=== PATIENT | female | born 1980 | race Caucasian/White ===

== ENCOUNTER 2018-06-22 12:03 | Emergency (ER) | payer BC, OTHER ==
[~2018-06-22] VITALS: Ht 167.6 cm; Wt 76.3 kg
[2018-06-22] MEDS ORDERED: MULT-516 PO (12:36)
[2018-06-22] MEDS ORDERED: KETOROLAC 30 MG/1 ML ONE (12:54)
[2018-06-22] MEDS ORDERED: DIAZEPAM 5 MG TABLET ONE (12:55)
[2018-06-22] MEDS ORDERED: KETOROLAC 30 MG/1 ML IM ONE (13:00)
[2018-06-22] MEDS ORDERED: DIAZEPAM 5 MG TABLET PO ONE (13:00)
[2018-06-22] MEDS ORDERED: PLEASE ENTER ALLERGIES MC SCH (13:00)
[2018-06-22] MEDS ORDERED: ONDANSETRON 2MG/ML, 2ML ONE (14:45)
[2018-06-22] MEDS ORDERED: HYDROmorphone 2 MG/ML, 1ML ONE (14:46)
[2018-06-22] MEDS ORDERED: METHOCARBAMOL 1,000 MG in DEXTROSE 5% 100 ML IV ONE (15:00)
[2018-06-22] MEDS ORDERED: HYDROmorphone 1 MG/ML, 1ML IV ONE (15:00)
[2018-06-22] MEDS ORDERED: ONDANSETRON 2MG/ML, 2ML IVPush ONE (15:00)
[2018-06-22 15:33] VITALS: BP 116/75
== END 2018-06-22 16:31 | disposition home or self-care (01) ==
LOC: ED 14:07
DX: M46.1 Sacroiliitis, not elsewhere classified (principal)
CPT/HCPCS: 72110; 96365; 96372; 96375; 99284; J1170; J1885; J2405; J2800; J7512